=== PATIENT | male | born 1965 | race Caucasian/White ===

== ENCOUNTER 2018-01-09 14:26 | Emergency (ER) | payer SELFPAY ==
--- NOTE | 2018-01-09 15:06 | ED Physician Chart ---
ED Chief Complaint/HPI - Patient Information Date Seen:: 01/09/18 Time Seen:: 14:45 Chief Complaint:: anxiety and insomnia History of Present Illness:: Patient wants to fly to [place] where his and 5 children are. He has insomnia and feels anxious and is afraid to fly. He states he used to fly without fear in the past. Allergies:: Allergies Allergy/AdvReac Type Severity Reaction Status Date / Time No Known Allergies Allergy Verified 01/09/18 14:51 Vitals:: Vital Signs - 8 hr 01/09/18 14:52 Temp 98.1 F HR 80 RR 16 BP 122/79 O2 Sat % 97 Historian:: Patient Review:: Nurse's Note Reviewed ED Review of Systems - Review of Systems General/Constitutional: No fever, No chills, Other (insomnia) Skin: No skin lesions Head: No headache Eyes: No loss of vision ENT: No earache Neck: No neck pain Cardio Vascular: No chest pain, No palpitations GI: No nausea, No vomiting, No diarrhea G/U: No dysuria Musculoskeletal: No bone or joint pain, No back pain, No muscle pain Endocrine: No polyuria, No polydipsia Psychiatric: Anxiety Hematopoietic: No bruising Allergic/Immuno: No urticaria Neurological: No syncope, No focal symptoms ED Past Medical History - Past Medical History Past Medical History: Asthma/COPD, Other (anxiety) Family History: None Social History: Non Smoker, No Alcohol Surgical History: None Psychiatricy History: Other (anxiety) Medication: None ED Physical Exam - Physical Examination General/Constitutional: Awake, Well-developed, well-nourished, Alert, No distress, GCS 15, Non-toxic appearing, Ambulatory Head: Atraumatic Eyes: Lids, conjuctiva normal, PERRL, EOMI Skin: Nl inspection, No rash, No skin lesions, No ecchymosis, Well hydrated, No lymphadenopathy ENMT: External ears, nose nl, Nasal exam nl, Lips, teeth, gums nl Neck: Nontender, Full ROM w/o pain, No JVD, No nuchal rigidity, No bruit, No mass, No stridor Respiratory: Nl effort/Exclusion, Clear to Auscultation, No Wheeze/Rhonchi/Rales Cardio Vascular: RRR, No murmur, gallop, rubs, NL S1 S2 GI: No tenderness/rebounding/guarding, No organomegaly, No hernia, Normal BS's, Nondistended, No mass/bruits, No McBurney tenderness : No CVA tenderness Extremities: No tenderness or effusion, Full ROM, normal strength in all extremities, No edema, Normal digits & nails Neuro/Psych: Alert/oriented, DTR's symmetric, Normal sensory exam, Normal motor strength, Judgement/insight normal, Mood normal, Normal gait, No focal deficits Misc: Normal back, No paraspinal tenderness ED Assessment - Assessment General Assessment: I will prescribe patient Ambien 10 mg #7 to take 1 daily at bedtime as necessary. CURES was not accessed because only a nonrefillable one week's supply is being prescribed ED Septic Shock - <6hrs of presentation: Vital Signs: Vital Signs - 8 hr 01/09/18 14:52 Temp 98.1 F HR 80 RR 16 BP 122/79 O2 Sat % 97
== END 2018-01-09 15:44 | disposition home or self-care (01) ==
LOC: ER 14:26
DX: F41.9 Anxiety disorder, unspecified (principal); G47.00 Insomnia, unspecified; J44.9 Chronic obstructive pulmonary disease, unspecified
CPT/HCPCS: 82948-90; Z7502